=== PATIENT | female | born 1995 | race Caucasian/White ===

== ENCOUNTER 2016-12-13 13:56 | Emergency (ER) | payer OTHER ==
[~2016-12-13] VITALS: Ht 160 cm; Wt 68.0 kg
[2016-12-13] MEDS ORDERED: ATOM25CA FT (14:42)
[2016-12-13] MEDS ORDERED: CLAR10CA3 PO (14:42)
[2016-12-13] MEDS ORDERED: HYDR10T PO (14:42)
[2016-12-13] MEDS ORDERED: TIZA2CAP3 PO (14:42)
[2016-12-13] MEDS ORDERED: LUNE3TAB48 PO (14:42)
[2016-12-13] MEDS ORDERED: TRAZ150T14 PO (14:42)
[2016-12-13] MEDS ORDERED: JOLETAB PO (14:42)
[2016-12-13] MEDS ORDERED: GI COCKTAIL 50ML BTL(HYOSCYAMINE/MAALOX/LIDOCAINE VISCOUS)(1:3:1) PO ONE (16:30)
[2016-12-13] MEDS ORDERED: ONDANSETRON 4MG/2ML VIAL (J2405) IV ONE (16:30)
[2016-12-13] MEDS ORDERED: NS 1,000 ML IV ONE (16:30)
[2016-12-13] MEDS ORDERED: KETOROLAC 30 MG/ML VIAL (J1885) IV ONE (16:30)
[2016-12-13 16:57] LABS: BASO # 0.1 K/mm3 (0.0-0.2); BASO % 0.9 % (0.0-1.0); EOS # 0.2 K/mm3 (0.0-0.50); EOS % 2.9 % (0.0-3.0); LARGE UNSTAINED CELL # 0.1 K/mm3 (0.0-0.4); LARGE UNSTAINED CELL % 2.2 % (0.0-4.0); LYMPH # 2.8 K/mm3 (1.5-6.5); LYMPH % 44.8 % (24.0-44.0); MEAN CORPUSCULAR HEMOGLOBIN 30.5 pg (27.0-33.0); MEAN CORPUSCULAR HGB CONC 34.1 g/dl (32.0-36.5); MEAN CORPUSCULAR VOLUME 89.6 fl (80.0-96.0); MONO # 0.3 K/mm3 (0.0-0.8); MONO % 4.4 % (0.0-5.0); NEUTROPHILS # 2.7 K/mm3 (1.8-7.7); NEUTROPHILS % 44.9 % (36.0-66.0); PLATELET COUNT, AUTOMATED 244 k/mm3 (150-450); RED CELL DISTRIBUTION WIDTH 12.3 % (11.5-14.5); WHITE BLOOD COUNT 6.1 K/mm3 (4.0-10.0)
[2016-12-13 17:14] LABS: ALBUMIN 3.8 GM/DL (3.2-5.2); ALBUMIN/GLOBULIN RATIO 1.03 (1.00-1.93); ALKALINE PHOSPHATASE 58 U/L (45-117); ALT/SGPT 17 U/L (12-78); ANION GAP 8 MEQ/L (8-16); AST/SGOT 18 U/L (15-37); BILIRUBIN,DIRECT < 0.1 MG/DL (0.0-0.2); BILIRUBIN,TOTAL 0.2 MG/DL (0.2-1.0); BLOOD UREA NITROGEN 7 MG/DL (7-18); CALCIUM LEVEL 8.6 MG/DL (8.5-10.1); CARBON DIOXIDE LEVEL 24 MEQ/L (21-32); CHLORIDE LEVEL 107 MEQ/L (98-107); CREATININE FOR GFR 0.75 MG/DL (0.55-1.02); GLOMERULAR FILTRATION RATE > 60.0 (>60); GLUCOSE, FASTING 90 MG/DL (70-105); POTASSIUM SERUM 3.6 MEQ/L (3.5-5.1); SODIUM LEVEL 139 MEQ/L (136-145); TOTAL PROTEIN 7.5 GM/DL (6.4-8.2)
[2016-12-13] MEDS ORDERED: ZANT300T PO (17:31)
[2016-12-13 17:41] VITALS: BP 109/65
== END 2016-12-13 18:03 | disposition home or self-care (01) ==
LOC: M ED 13:56
DX: R10.13 Epigastric pain (principal); Z88.0 Allergy status to penicillin; Z79.3 Long term (current) use of hormonal contraceptives
CPT/HCPCS: 36415; 80048; 80076; 81001; 81025; 83690; 85025; 96374; 96375; 99282; J1885; J2405

== ENCOUNTER 2017-01-21 18:02 | Emergency (ER) | payer OTHER ==
[~2017-01-21] VITALS: Ht 160 cm; Wt 68.0 kg
[~2017-01-21 18:02] MED LIST: ATOM25CA FT; CLAR10CA3 PO; HYDR10T PO; JOLETAB PO; LUNE3TAB48 PO; TIZA2CAP3 PO; TRAZ150T14 PO; ZANT300T PO
[2017-01-21] MEDS ORDERED: NS 1,000 ML IV ONE (20:15)
[2017-01-21] MEDS ORDERED: ONDANSETRON 4MG/2ML VIAL (J2405) IV ONE (20:15)
[2017-01-21 20:34] LABS: BASO % 0.8 % (0.0-1.0); EOS # 0.1 K/mm3 (0.0-0.50); EOS % 1.4 % (0.0-3.0); LARGE UNSTAINED CELL # 0.2 K/mm3 (0.0-0.4); LARGE UNSTAINED CELL % 2.2 % (0.0-4.0); LYMPH % 43.9 % (24.0-44.0); MEAN CORPUSCULAR HEMOGLOBIN 30.6 pg (27.0-33.0); MEAN CORPUSCULAR HGB CONC 33.4 g/dl (32.0-36.5); MEAN CORPUSCULAR VOLUME 91.8 fl (80.0-96.0); MONO # 0.3 K/mm3 (0.0-0.8); MONO % 4.2 % (0.0-5.0); NEUTROPHILS # 3.1 K/mm3 (1.8-7.7); NEUTROPHILS % 47.5 % (36.0-66.0); PLATELET COUNT, AUTOMATED 293 k/mm3 (150-450); RED CELL DISTRIBUTION WIDTH 13.3 % (11.5-14.5); WHITE BLOOD COUNT 6.6 K/mm3 (4.0-10.0)
[2017-01-21 20:44] LABS: CONTROL LINE HCG INT CTR LINE PRESENT
[2017-01-21 20:50] LABS: ALBUMIN 4.4 GM/DL (3.2-5.2); ALBUMIN/GLOBULIN RATIO 1.22 (1.00-1.93); ALKALINE PHOSPHATASE 59 U/L (45-117); ALT/SGPT 23 U/L (12-78); AMYLASE 91 U/L (25-115); ANION GAP 7 MEQ/L (8-16); AST/SGOT 18 U/L (15-37); BILIRUBIN,DIRECT < 0.1 MG/DL (0.0-0.2); BILIRUBIN,TOTAL 0.4 MG/DL (0.2-1.0); BLOOD UREA NITROGEN 9 MG/DL (7-18); CALCIUM LEVEL 8.9 MG/DL (8.5-10.1); CARBON DIOXIDE LEVEL 26 MEQ/L (21-32); CHLORIDE LEVEL 103 MEQ/L (98-107); CREATININE FOR GFR 0.76 MG/DL (0.55-1.02); GLOMERULAR FILTRATION RATE > 60.0 (>60); GLUCOSE, FASTING 106 MG/DL (70-105); POTASSIUM SERUM 3.6 MEQ/L (3.5-5.1); SODIUM LEVEL 136 MEQ/L (136-145)
[2017-01-21] MEDS ORDERED: ZOFR4TAB3 PO (21:23)
[2017-01-21 21:28] VITALS: BP 120/73
== END 2017-01-21 21:46 | disposition home or self-care (01) ==
LOC: M ED 19:07
DX: R11.2 Nausea with vomiting, unspecified (principal); Z88.0 Allergy status to penicillin; Z79.899 Other long term (current) drug therapy; Z79.3 Long term (current) use of hormonal contraceptives
CPT/HCPCS: 80048; 80076; 81001; 82150; 83690; 84703; 85025; 87086; 96374; 99283; J2405

== ENCOUNTER 2017-01-25 07:43 | Emergency (ER) | payer OTHER ==
[~2017-01-25] VITALS: Ht 160 cm; Wt 66.2 kg
[~2017-01-25 07:43] MED LIST changes: +ZOFR4TAB3 PO
[2017-01-25] MEDS ORDERED: PROM50TA2 PO (07:53)
[2017-01-25] MEDS ORDERED: NS 1,000 ML IV ONE (08:15)
[2017-01-25 08:36] LABS: EOS # 0.1 K/mm3 (0.0-0.50); EOS % 2.4 % (0.0-3.0); LARGE UNSTAINED CELL # 0.1 K/mm3 (0.0-0.4); LARGE UNSTAINED CELL % 2.6 % (0.0-4.0); LYMPH # 2.2 K/mm3 (1.5-6.5); LYMPH % 40.9 % (24.0-44.0); MEAN CORPUSCULAR HEMOGLOBIN 30.3 pg (27.0-33.0); MEAN CORPUSCULAR HGB CONC 33.6 g/dl (32.0-36.5); MEAN CORPUSCULAR VOLUME 90.1 fl (80.0-96.0); MONO # 0.2 K/mm3 (0.0-0.8); MONO % 4.2 % (0.0-5.0); NEUTROPHILS # 2.5 K/mm3 (1.8-7.7); NEUTROPHILS % 48.9 % (36.0-66.0); PLATELET COUNT, AUTOMATED 298 k/mm3 (150-450)
[2017-01-25 08:47] LABS: CONTROL LINE UCG INT CTR LINE PRESENT
[2017-01-25] MEDS ORDERED: TRIMETHOBENZAMIDE HCL INJ 200 MG/2 ML VIAL (J3250) IM ONE (09:00)
[2017-01-25 09:01] LABS: ALBUMIN 4.5 GM/DL (3.2-5.2); ALBUMIN/GLOBULIN RATIO 1.29 (1.00-1.93); ALKALINE PHOSPHATASE 58 U/L (45-117); ALT/SGPT 23 U/L (12-78); AMYLASE 65 U/L (25-115); ANION GAP 8 MEQ/L (8-16); AST/SGOT 16 U/L (15-37); BILIRUBIN,DIRECT 0.1 MG/DL (0.0-0.2); BILIRUBIN,TOTAL 0.3 MG/DL (0.2-1.0); BLOOD UREA NITROGEN 8 MG/DL (7-18); CALCIUM LEVEL 9.2 MG/DL (8.5-10.1); CARBON DIOXIDE LEVEL 25 MEQ/L (21-32); CHLORIDE LEVEL 104 MEQ/L (98-107); GLOMERULAR FILTRATION RATE > 60.0 (>60); GLUCOSE, FASTING 92 MG/DL (70-105); POTASSIUM SERUM 3.6 MEQ/L (3.5-5.1); SODIUM LEVEL 137 MEQ/L (136-145)
--- NOTE | 2017-01-25 09:30 | REP ---
RIGHT UPPER QUADRANT ULTRASOUND: Real-time sonographic evaluation of the right upper quadrant performed. The gallbladder demonstrates no evidence of intraluminal sludge or calculi, wall thickening or pericholecystic fluid. There is no intrahepatic or extrahepatic biliary dilatation, common bile duct measuring 2 mm in diameter. Liver and pancreas demonstrate homogeneous echotexture with no gross mass. Right kidney demonstrates no hydronephrosis or nephrolithiasis with normal size at 12 cm in length. IMPRESSION: Negative right upper quadrant ultrasound. Signed by Parmjit Arce MD 01/25/2017 02:24 P
--- NOTE | 2017-01-25 09:32 | REP ---
ABDOMINAL SERIES: Supine and erect views of the abdomen demonstrate no free air and no evidence for bowel obstruction. No dilated small bowel loops are seen. No abnormal calcifications are seen in the abdomen or pelvis. The visualized osseous structures are unremarkable. An accompanying view of the chest demonstrates no acute infiltrate. Heart is normal in size. IMPRESSION: Negative abdominal series. Signed by Parmjit Arce MD 01/25/2017 02:24 P
[2017-01-25] MEDS ORDERED: REGL10TA6 PO (11:00)
[2017-01-25] MEDS ORDERED: MIRA3350 PO (11:01)
[2017-01-25 11:19] VITALS: BP 119/70
== END 2017-01-25 11:21 | disposition home or self-care (01) ==
LOC: M ED 08:37
DX: K59.04 Chronic idiopathic constipation (principal); R11.2 Nausea with vomiting, unspecified; Z79.899 Other long term (current) drug therapy; Z88.0 Allergy status to penicillin
CPT/HCPCS: 74022; 76705; 80048; 80076; 81001; 81025; 82150; 83690; 84703; 85025; 96361; 96372; 99283; J3250

== ENCOUNTER → 2017-02-15 | Outpatient (CLI) | payer OTHER ==
[~2017-02-15] MED LIST changes: +MIRA3350 PO; +PROM50TA2 PO; +REGL10TA6 PO
--- NOTE | 2017-02-15 12:15 | REP ---
HIDA SCAN WITH GALLBLADDER EJECTION FRACTION: Following the intravenous administration of 6.2 mCi of technetium-99m mebrofenin, multiple images of the right upper quadrant are performed every 5 minutes for a period of 1 hour. Gallbladder is visualized at 20 minutes post injection and there is biliary to bowel transit as well with no scintigraphic evidence of cholecystitis. At the 1 hour abdiaziz 8 ounces of Ensure Enlive was ingested and further imaging performed for 1 hour. Gallbladder activity is measured and the gallbladder ejection fraction is calculated. The gallbladder ejection is 63% which is normal. IMPRESSION: Normal gallbladder ejection fraction. No scintigraphic evidence of cholecystitis. Signed by Parmjit Arce MD 02/15/2017 04:46 P
== END ==
LOC: M RAD 09:01
PROVIDERS: ATTEND Student in an Organized Health Care Education/Training Program
DX: R10.11 Right upper quadrant pain (principal)

== ENCOUNTER → 2017-03-21 | Outpatient (CLI) | payer OTHER ==
[~2017-03-21] MED LIST changes: +GASTROGRAFIN SOLUTION 30ML (Q9963) As Ordered ONE; +ISOVUE-370 76% 100ML VIAL (Q9967) As Ordered ONE
--- NOTE | 2017-03-21 09:46 | REP ---
CT abdomen and pelvis without IV and with IV contrast: With oral contrast. History: Nausea, vomiting, right upper quadrant abdominal pain. CT contrast dose: 100 ml of Isovue [address] findings: Digital preliminary project accountant radiograph demonstrates a normal bowel gas pattern. Umbilical jewelry is noted. The lung bases show an oval shaped noncalcified pulmonary nodule in the right lower lobe measuring 0.4 cm in greatest diameter. The liver and the spleen are normal in size, homogeneous in texture. The gallbladder and pancreas are unremarkable. No adrenal lesion is seen. The kidneys enhance symmetrically and are morphologically intact. No retroperitoneal mass or adenopathy is observed. There is a tiny accessory splenule in the left upper quadrant. A normal appendix is seen in the right lower quadrant and pelvis. No uterine or ovarian abnormality is observed. No abdominal wall defect is seen. Urinary bladder is unremarkable. Bone window settings show no bony destructive lesion. Impression: 1. No significant abdominal or pelvic abnormality. 2. 4 mm noncalcified pulmonary nodule in the right lower lobe. By Fleischner Society criteria, if the patient is considered at low risk for pulmonary malignancy, no follow-up is needed. If considered at increased risk, a follow-up CT would be warranted in 12 months. Signed by Onofre Reyes MD 03/21/2017 02:50 P
== END ==
LOC: M RAD 07:13
PROVIDERS: ATTEND Student in an Organized Health Care Education/Training Program
DX: R10.11 Right upper quadrant pain (principal); R11.2 Nausea with vomiting, unspecified
CPT/HCPCS: 74178; Q9963; Q9967

== ENCOUNTER 2017-06-15 23:08 | Emergency (ER) | payer OTHER ==
[~2017-06-15] VITALS: Ht 160 cm; Wt 63.6 kg
[~2017-06-15 23:08] MED LIST changes: -GASTROGRAFIN SOLUTION 30ML (Q9963) As Ordered ONE; +HYDR-643 PO; -HYDR10T PO; -ISOVUE-370 76% 100ML VIAL (Q9967) As Ordered ONE; +LUNE3TAB36 PO; -LUNE3TAB48 PO; -PROM50TA2 PO; +PROM50TA4 PO; -TRAZ150T14 PO; +TRAZ1TAB14 PO
[2017-06-15 23:15] VITALS: BP 132/87
[2017-06-15] MEDS ORDERED: TRAM50TA2 (23:20)
[2017-06-15 23:52] LABS: MICROSCOPIC INDICATED? MAN YES (NO)
[2017-06-15] MEDS ORDERED: BACT800T5 PO (23:54)
[2017-06-16] MEDS ORDERED: BACTRIM 160MG/800MG DS TAB PO ONE
[2017-06-16 00:09] LABS: MICROSCOPIC EXAM PERFORMED
[2017-06-16 00:10] LABS: BACTERIA, URINE SMALL AMOUNT; HYALINE CAST, URINE NONE SEEN /lpf (0-1); SQUAMOUS EPITHELIAL CELL URINE SMALL AMOUNT /hpf (SMALL AMT); WBC, URINE TNTC /hpf (0-3)
== END 2017-06-16 00:06 | disposition home or self-care (01) ==
LOC: M ED 23:08
DX: N30.90 Cystitis, unspecified without hematuria (principal); F99 Mental disorder, not otherwise specified; Z88.0 Allergy status to penicillin

== ENCOUNTER → 2017-06-20 | Outpatient (CLI) | payer OTHER ==
[~2017-06-20] MED LIST changes: +BACT800T5 PO; +TRAM50TA2
== END ==
LOC: M OUTALCOH 09:04
PROVIDERS: ATTEND Psychiatry & Neurology Psychiatry
DX: F10.10 Alcohol abuse, uncomplicated (principal)

== ENCOUNTER 2017-07-14 08:00 | Outpatient (RCR) | payer OTHER | END 2017-07-15 | LOC: M OUTALCOH 08:00 | PROVIDERS: ATTEND Psychiatry & Neurology Psychiatry | DX: F10.10 Alcohol abuse, uncomplicated (principal) ==

== ENCOUNTER 2017-08-31 15:00 | Outpatient (RCR) | payer OTHER | END 2017-09-14 | LOC: M OUTALCOH 15:00 | PROVIDERS: ATTEND Psychiatry & Neurology Psychiatry | DX: F10.10 Alcohol abuse, uncomplicated (principal) ==

== ENCOUNTER 2017-10-03 11:30 | Outpatient (RCR) | payer OTHER | END 2017-10-15 | LOC: M OUTALCOH 10-13 13:50 | DX: F10.10 Alcohol abuse, uncomplicated (principal) ==

== ENCOUNTER 2017-10-27 16:31 | Outpatient (RCR) | payer OTHER | END 2017-11-15 | LOC: M OUTALCOH 16:31 | DX: F10.10 Alcohol abuse, uncomplicated (principal) ==

== ENCOUNTER 2017-11-21 09:42 | Day surgery (SDC) | payer OTHER ==
[~2017-11-21 09:42] MED LIST changes: -ATOM25CA FT; -BACT800T5 PO; -CLAR10CA3 PO; -HYDR-643 PO; -JOLETAB PO; +KETOROLAC 60 MG/2 ML VIAL (J1885) As Ordered; +LIDOCAINE 2% INJ 100 MG/5 ML SDV (FOR ANES.) As Ordered; -LUNE3TAB36 PO; +MIDAZOLAM INJ 2 MG/2 ML VIAL (J2250) As Ordered; -MIRA3350 PO; +ONDANSETRON 4MG/2ML VIAL (J2405) As Ordered; -PROM50TA4 PO; +PROPOFOL 200 MG/20 ML VIAL As Ordered; -REGL10TA6 PO; +ROCURONIUM BROMIDE 50 MG/5 ML VIAL As Ordered; -TIZA2CAP3 PO; -TRAM50TA2; -TRAZ1TAB14 PO; -ZANT300T PO; -ZOFR4TAB3 PO; +dexameTHASONE 4 MG/ML 1ML VIAL (J1100) As Ordered; +fentaNYL 250 MCG/5 ML INJECTION (J3010) As Ordered
[2017-11-21] MEDS ORDERED: NEOSTIGMINE 10 MG/10 ML VIAL (J2710) (09:43)
[2017-11-21] MEDS ORDERED: SODIUM CHLORIDE 0.9% 1000 ML IV (10:00)
[2017-11-21] MEDS: LR 1,000 ML IV (10:00)
[2017-11-21] MEDS ORDERED: NS 1,000 ML IV (10:00)
[2017-11-21] MEDS ORDERED: METHYLENE BLUE 0.5% (5MG/ML) 10 ML AMP (PROVAYBLUE)(Q9968 PER 1MG) As Ordered (10:03)
[2017-11-21] MEDS ORDERED: ACETAMINOPHEN 650 MG SUPP As Ordered (10:04)
[2017-11-21 10:13] LABS: HEMATOCRIT 38.8 % (36.0-47.0); HEMOGLOBIN 13.1 g/dl (12.0-16.0); MEAN CORPUSCULAR HEMOGLOBIN 29.5 pg (27.0-33.0); MEAN CORPUSCULAR HGB CONC 33.8 g/dl (32.0-36.5); MEAN CORPUSCULAR VOLUME 87.4 fl (80.0-96.0); PLATELET COUNT, AUTOMATED 317 10^3/uL (150-450); RED BLOOD COUNT 4.44 10^6/uL (4.00-5.40); RED CELL DISTRIBUTION WIDTH 12.7 % (11.5-14.5); WHITE BLOOD COUNT 6.5 10^3/uL (4.0-10.0)
[2017-11-21 10:35] LABS: ANION GAP 7 MEQ/L (8-16); BLOOD UREA NITROGEN 8 MG/DL (7-18); CALCIUM LEVEL 9.1 MG/DL (8.5-10.1); CARBON DIOXIDE LEVEL 26 MEQ/L (21-32); CHLORIDE LEVEL 105 MEQ/L (98-107); CREATININE FOR GFR 0.72 MG/DL (0.55-1.30); GLOMERULAR FILTRATION RATE > 60.0 (>60); GLUCOSE, FASTING 86 MG/DL (70-100); HCG, SERUM QUANTITATIVE < 1.0 MIU/ML; POTASSIUM SERUM 3.3 MEQ/L (3.5-5.1); SODIUM LEVEL 138 MEQ/L (136-145)
[2017-11-21] MEDS ORDERED: MIDAZOLAM INJ 2 MG/2 ML VIAL (J2250) As Ordered (10:36)
[2017-11-21] MEDS: ACETAMINOPHEN 650 MG SUPP PR (11:00)
[2017-11-21] MEDS ORDERED: HYDROmorphone HCL 2 MG/ML 1ML VIAL (J1170) As Ordered (11:13)
[2017-11-21] MEDS ORDERED: KETOROLAC 60 MG/2 ML VIAL (J1885) As Ordered (11:13)
[2017-11-21] MEDS ORDERED: GLYCOPYRROLATE INJ 0.2 MG/ML 2 ML VIAL As Ordered (11:13)
[2017-11-21] MEDS ORDERED: NEOSTIGMINE 10 MG/10 ML VIAL (J2710) As Ordered (11:13)
[2017-11-21] MEDS: BUPIVACAINE HCL 0.5% 10 ML VIAL As Ordered (11:15)
[2017-11-21] MEDS ORDERED: MEPERIDINE 50 MG/ML 1ML VIAL (J2175) As Ordered (11:54)
[2017-11-21] MEDS: PERCOCET 5MG/325MG TAB PO ×2 (12:24→13:00)
[2017-11-21] MEDS ORDERED: PERCOCET 5MG/325MG TAB As Ordered ×2 (12:24→12:44)
[2017-11-21] MEDS ORDERED: LR 1,000 ML IV (13:00)
[2017-11-21] MEDS ORDERED: fentaNYL 100 MCG/2 ML INJECTION (J3010) IV (13:00)
[2017-11-21] MEDS: ONDANSETRON 4MG/2ML VIAL (J2405) IV (14:08)
== END 2017-11-21 14:40 | disposition home or self-care (01) ==
LOC: M SDC 14:40
DX: N94.10 Unspecified dyspareunia (principal); K59.00 Constipation, unspecified; N80.3 Endometriosis of pelvic peritoneum; G47.9 Sleep disorder, unspecified; K21.9 Gastro-esophageal reflux disease without esophagitis; F90.9 Attention-deficit hyperactivity disorder, unspecified type; F32.9 Major depressive disorder, single episode, unspecified; Z88.0 Allergy status to penicillin; Z79.899 Other long term (current) drug therapy; Z79.3 Long term (current) use of hormonal contraceptives
CPT/HCPCS: 58662

== ENCOUNTER 2017-11-30 16:00 | Outpatient (RCR) | payer OTHER | END 2017-12-13 | LOC: M OUTALCOH 16:00 | DX: F10.10 Alcohol abuse, uncomplicated (principal) ==

== ENCOUNTER 2018-05-16 02:54 | Emergency (ER) | payer OTHER ==
[2018-05-16] MEDS ORDERED: MORPHINE 2 MG/ML 1ML SYRINGE (J2270) IV (04:15)
[2018-05-16] MEDS ORDERED: NS 1,000 ML IV (04:15)
[2018-05-16] MEDS: MAGNESIUM CITRATE 300 ML BTL PO (04:45)
== END 2018-05-16 05:08 | disposition home or self-care (01) ==
LOC: M ED 02:54
DX: K59.00 Constipation, unspecified (principal); N80.9 Endometriosis, unspecified; Z79.899 Other long term (current) drug therapy; Z79.3 Long term (current) use of hormonal contraceptives; Z88.0 Allergy status to penicillin
CPT/HCPCS: 87169

== ENCOUNTER → 2018-06-28 | Outpatient (CLI) | payer OTHER ==
[2018-06-28 17:49] LABS: ALBUMIN 4.5 GM/DL (3.2-5.2); ALBUMIN/GLOBULIN RATIO 1.45 (1.00-1.93); ALKALINE PHOSPHATASE 64 U/L (45-117); ALT/SGPT 40 U/L (12-78); ANION GAP 8 MEQ/L (8-16); AST/SGOT 27 U/L (7-37); BILIRUBIN,TOTAL 0.3 MG/DL (0.2-1.0); BLOOD UREA NITROGEN 7 MG/DL (7-18); CALCIUM LEVEL 9.8 MG/DL (8.5-10.1); CARBON DIOXIDE LEVEL 26 MEQ/L (21-32); CHLORIDE LEVEL 104 MEQ/L (98-107); CREATININE FOR GFR 0.78 MG/DL (0.55-1.30); GLOMERULAR FILTRATION RATE > 60.0 (>60); GLUCOSE, FASTING 93 MG/DL (70-100); POTASSIUM SERUM 3.9 MEQ/L (3.5-5.1); RHEUMATOID FACTOR QUANT < 10.0 IU/ML (<15.0); SODIUM LEVEL 138 MEQ/L (136-145); THYROID STIMULATING HORMONE 0.391 uIU/ML (0.358-3.740); TOTAL PROTEIN 7.6 GM/DL (6.4-8.2)
[2018-06-28 18:25] LABS: FOLATE > 24.0 NG/ML
[2018-06-28 19:30] LABS: BASO # 0.1 10^3/uL (0.0-0.2); BASO % 1.2 % (0.0-1.0); EOS # 0.1 10^3/uL (0.0-0.50); HEMOGLOBIN 11.8 g/dl (12.0-15.5); LYMPH # 2.4 10^3/uL (1.5-6.5); LYMPH % 54.5 % (24.0-44.0); MEAN CORPUSCULAR HEMOGLOBIN 29.9 pg (27.0-33.0); MEAN CORPUSCULAR HGB CONC 32.8 g/dl (32.0-36.5); MEAN CORPUSCULAR VOLUME 91.4 fl (80.0-96.0); MONO # 0.3 10^3/uL (0.0-0.8); MONO % 7.4 % (0.0-5.0); NEUTROPHILS # 1.5 10^3/uL (1.8-7.7); NEUTROPHILS % 33.9 % (36.0-66.0); PLATELET COUNT, AUTOMATED 284 10^3/uL (150-450); RED BLOOD COUNT 3.94 10^6/uL (4.00-5.40); WHITE BLOOD COUNT 4.3 10^3/uL (4.0-10.0)
[2018-06-28 20:56] LABS: ERYTHROCYTE SEDIMENTATION RATE 9 mm/hr (0-20)
[2018-07-02 15:23] LABS: ALBUMIN 4.73 GM/DL (3.29-5.55); ALBUMIN % 62.2 % (55.8-66.1); ALPHA-1-GLOBULIN % 4.1 % (2.9-4.9); ALPHA-1-GLOBULINS 0.31 GM/DL (0.17-0.41); ALPHA-2-GLOBULINS 0.68 GM/DL (0.42-0.99)
[2018-07-02 15:24] LABS: BETA-1-GLOBULINS 0.43 GM/DL (0.28-0.60); BETA-1-GLOBULINS % 5.7 % (4.7-7.2); GAMMA GLOBULINS 1.14 GM/DL (0.65-1.58)
[2018-07-03 11:31] LABS: PTT LUPUS TYPE ANTICOAG SCREEN 0.9 (0-1.2)
== END ==
LOC: M LAB 16:15
DX: R41.82 Altered mental status, unspecified (principal); R41.3 Other amnesia; H53.9 Unspecified visual disturbance
CPT/HCPCS: 82746

== ENCOUNTER → 2018-09-30 | Outpatient (CLI) | payer OTHER ==
[~2018-09-30] MED LIST changes: +ALPR0.5T3; +AMBI12.52; +ATOM25CA FT; +BACT800T5 PO; +CLAR10CA3 PO; +CLON0.2T; +CVS20TAB PO; +FLUO10TA2 PO; +HYDR-643 PO; +JOLETAB PO; -KETOROLAC 60 MG/2 ML VIAL (J1885) As Ordered; -LIDOCAINE 2% INJ 100 MG/5 ML SDV (FOR ANES.) As Ordered; +LUNE3TAB36 PO; -MIDAZOLAM INJ 2 MG/2 ML VIAL (J2250) As Ordered; +MIRA3350 PO; -ONDANSETRON 4MG/2ML VIAL (J2405) As Ordered; +PROM50TA4 PO; -PROPOFOL 200 MG/20 ML VIAL As Ordered; +REGL10TA6 PO; -ROCURONIUM BROMIDE 50 MG/5 ML VIAL As Ordered; +TIZA2CAP PO; +TRAM50TA2; +TRAZ1TAB14 PO; +XANA0.5T PO; +ZANT300T PO; +ZOFR4TAB14 PO; -dexameTHASONE 4 MG/ML 1ML VIAL (J1100) As Ordered; -fentaNYL 250 MCG/5 ML INJECTION (J3010) As Ordered
[2018-09-30 13:37] LABS: FREE T4 1.29 NG/DL (0.76-1.46); THYROID STIMULATING HORMONE 0.641 uIU/ML (0.358-3.740)
[2018-10-01 10:58] LABS: LUTEINIZING HORMONE 4.4 mIU/mL; PROLACTIN 6.5 NG/ML
[2018-10-01 11:01] LABS: ESTRADIOL 39.1 PG/ML; FOLLICLE STIMULATING HORMONE 7.3 mIU/mL
== END ==
LOC: M LAB 12:42
PROVIDERS: ATTEND Obstetrics & Gynecology
DX: N91.5 Oligomenorrhea, unspecified (principal); N97.8 Female infertility of other origin

== ENCOUNTER → 2018-11-12 | Outpatient (CLI) | payer BC, OTHER ==
[~2018-11-12] MED LIST changes: -ZANT300T PO; +ZANT300T9 PO
== END ==
LOC: M LAB 12:15
PROVIDERS: ATTEND Obstetrics & Gynecology
DX: Z32.01 Encounter for pregnancy test, result positive (principal)

== ENCOUNTER → 2018-11-27 | Outpatient (CLI) | payer BC, OTHER ==
[2018-11-27 18:49] LABS: BASO # 0.1 10^3/uL (0.0-0.2); BASO % 0.7 % (0.0-1.0); EOS # 0.1 10^3/uL (0.0-0.50); EOS % 0.7 % (0.0-3.0); HEMATOCRIT 39.7 % (36.0-47.0); HEMOGLOBIN 13.6 g/dl (12.0-15.5); LYMPH # 1.7 10^3/uL (1.5-6.5); LYMPH % 19.6 % (24.0-44.0); MEAN CORPUSCULAR HEMOGLOBIN 30.8 pg (27.0-33.0); MEAN CORPUSCULAR HGB CONC 34.3 g/dl (32.0-36.5); MEAN CORPUSCULAR VOLUME 89.8 fl (80.0-96.0); MONO # 0.6 10^3/uL (0.0-0.8); MONO % 6.3 % (0.0-5.0); NEUTROPHILS # 6.5 10^3/uL (1.8-7.7); NEUTROPHILS % 72.4 % (36.0-66.0); PLATELET COUNT, AUTOMATED 342 10^3/uL (150-450); RED BLOOD COUNT 4.42 10^6/uL (4.00-5.40); WHITE BLOOD COUNT 8.9 10^3/uL (4.0-10.0)
[2018-11-27 21:51] LABS: CHLAMYDIA DNA AMPLIFICATION NEGATIVE (NEGATIVE); GC DNA AMPLIFICATION NEGATIVE (NEGATIVE)
[2018-11-28 09:47] LABS: HEPATITIS C VIRUS ABY INDEX 0.1 INDEX (<0.8); HIV 1&2 SCREEN CENTAUR NEGATIVE (NEGATIVE); RUBELLA IgG QUALITATIVE IMMUNE (IMMUNE)
== END ==
LOC: M SMT 14:33
PROVIDERS: ATTEND Advanced Practice Midwife
DX: Z36.89 Encounter for other specified antenatal screening (principal)

== ENCOUNTER → 2018-12-24 | Outpatient (CLI) | payer BC, OTHER | LOC: M SMT 14:36 | PROVIDERS: ATTEND Advanced Practice Midwife | DX: Z34.01 Encounter for supervision of normal first pregnancy, first trimester (principal); Z3A.00 Weeks of gestation of pregnancy not specified ==

== ENCOUNTER → 2019-02-08 | Outpatient (CLI) | payer BC, OTHER ==
[~2019-02-08] MED LIST changes: -CVS20TAB PO; +OMEP20TA9 PO
--- NOTE | 2019-02-08 12:46 | REP ---
OB ULTRASOUND: Real-time sonographic evaluation of the gravid uterus is performed utilizing transabdominal and endovaginal technique. There is a single living intrauterine gestation. Estimated gestational age 18 weeks, EDC 07/12/2019. Today's measurements indicate appropriate growth. BPD 42 mm = 18 weeks 5 days, 68th percentile HC 155 mm = 18 weeks 3 days, 64th percentile AC 131 mm = 18 weeks 4 days, 62nd percentile Femur length 27 mm = 18 weeks 1 days, 54th percentile HC/AC ratio 1.19 within normal range. Estimated weight 238 grams, 63rd percentile. Cervix is closed and measures 3.1 cm in length. heart rate 133 beats per minute. SEEN/GROSSLY UNREMARKABLE Lateral ventricles Yes Posterior fossa Yes Upper lip Yes Four-chamber heart Yes Echogenic focus right ventricle likely related to moderator band. LVOT Yes RVOT Yes Stomach Yes Cord insertion Yes Three vessel cord Yes Kidneys Yes Bladder Yes Spine Yes position: Transverse with head toward the maternal right side. Placenta: Posterior and low lying, grade 0, with no previa or abruption. Tip of the placenta is 1.7 cm from the internal cervical os. Amniotic fluid: Within normal limits. Electronically Signed by Parmjit Arce MD 02/11/2019 01:34 P
== END ==
LOC: M RAD 10:15
PROVIDERS: ATTEND Obstetrics & Gynecology
DX: Z34.82 Encounter for supervision of other normal pregnancy, second trimester (principal); Z3A.18 18 weeks gestation of pregnancy

== ENCOUNTER → 2019-03-08 | Outpatient (CLI) | payer BC, OTHER ==
--- NOTE | 2019-03-08 12:51 | REP ---
Clinical: Placental location Comparison: 02/08/2019 . Findings: Examination demonstrates a single live intrauterine in breech presentation. motion is identified by technologist. Placenta is noted posterior and grade 1 without evidence for placenta previa or abruption. Placental tip 3.1 cm from the closed internal os. Amniotic fluid volume is normal. Cervix measures 4.0 cm in length and appears closed. FHR equals 146 beats per minute. Impression: Single live intrauterine in breech presentation. Posterior placenta without evidence for placenta previa. Electronically Signed by Francois Starr MD 03/08/2019 12:42 P
== END ==
LOC: M RAD 10:07
PROVIDERS: ATTEND Obstetrics & Gynecology
DX: Z34.82 Encounter for supervision of other normal pregnancy, second trimester (principal); Z3A.00 Weeks of gestation of pregnancy not specified